=== PATIENT | male | born 1955 | race Caucasian/White ===

== ENCOUNTER 2017-01-10 13:07 | Emergency (ER) | payer MEDICARE, OTHER ==
[~2017-01-10] VITALS: Ht 162.6 cm; Wt 83.5 kg
[2017-01-10 13:28] VITALS: BP 127/76; PULSE 83; RESP 18; TEMP 98.8; O2SAT 93
--- NOTE | 2017-01-10 13:57 | PD ---
HPI Chief Complaint: Edema Time Seen by Provider: 13:36 Travel History International Travel<30 days: No Contact w/Intl Traveler<30days: No Traveled to known affect area: No History of Present Illness HPI This patient complains of right ankle pain. Duration is 2 days. Severity is moderate. He has no fever or injury. He has chronic bilateral leg edema for which she takes Lasix. He also is on Coumadin for artificial heart valve. His last INR was 3.3 1 week ago. This is in Goal range so no adjustment was made. Pain is worse with weightbearing or movement PFSH Past Medical History Anxiety: Yes Depression: Yes Heart Rhythm Problems: Yes High Cholesterol: Yes Congestive Heart Failure: Yes Coronary Artery Disease: Yes GERD: Yes Influenza Vaccination: Yes Past Surgical History Cardiac Surgery: Yes (DEFIBRILLATOR) Valve Replacement: Yes (AORTIC VALVE) Social History Alcohol Use: Yes (OCCAS) Tobacco Use: No Substance Use: No Allergies-Medications (Allergen,Severity, Reaction): Coded Allergies: No Known Allergies (Unverified , 01/10/17) Reported Meds & Prescriptions Reported Meds & Active Scripts Active Prednisone 20 Mg Tab 40 Mg PO DAILY Take 40 mg (2 tablets) daily for 5 days Percocet (Oxycodone-Acetaminophen) 5-325 mg Tab 1 Tab PO Q6H PRN Reported Atorvastatin (Atorvastatin Calcium) 40 Mg Tab 40 Mg PO HS Warfarin 2 Mg Tab 2 Mg PO DIRECTED Potassium (Potassium Gluconate) 600 Mg Tablet 40 Meq PO DAILY Diazepam 10 Mg Tab 10 Mg PO TID PRN Carvedilol 12.5 Mg Tab 12.5 Mg PO BID Quinapril (Quinapril HCl) 5 Mg Tab 20 Mg PO DAILY Omeprazole 40 Mg Cap 40 Mg PO DAILY Hydralazine HCl 25 Mg Tablet 25 Mg PO TID Ropinirole 0.5 Mg Tab 0.5 Mg PO TID Furosemide 40 Mg Tab 40 Mg PO BID Citalopram (Citalopram Hydrobromide) 40 Mg Tab 40 Mg PO DAILY Centrum (Multiple Vitamins W/ Minerals) 1 Chew 1 Tab CHEW DAILY Review of Systems General / Constitutional: No: Fever Eyes: No: Visual changes HENT: No: Headaches Cardiovascular: No: Chest Pain or Discomfort Respiratory: No: Shortness of Breath Gastrointestinal: No: Abdominal Pain Genitourinary: No: Dysuria Musculoskeletal: Positive: Arthralgias, Limited ROM, Pain Skin: No Rash Neurologic: No: Weakness Psychiatric: No: Depression Endocrine: No: Polydipsia Hematologic/Lymphatic: No: Easy Bruising Physical Exam Narrative GENERAL: Well-nourished, well-developed patient in no apparent distress. SKIN: Focused skin assessment reveals no rash and nodules. Skin is Warm and dry. HEAD: Atraumatic. Normocephalic. EYES: Pupils equal and round. No scleral icterus. No injection or drainage. ENT: No nasal bleeding or discharge. Mucous membranes pink and moist. NECK: Trachea midline. No JVD. CARDIOVASCULAR: Regular rate and rhythm. No murmur appreciated. RESPIRATORY: No accessory muscle use. Clear to auscultation. Breath sounds equal bilaterally. GASTROINTESTINAL: Abdomen soft, non-tender, nondistended. Hepatic and splenic margins not palpable. MUSCULOSKELETAL: No obvious deformities. No clubbing. No cyanosis. Symmetric edema of the lower extremities from the knee down. No ecchymosis or bruising or warmth or erythema. He has pain with movement of the right ankle. No calf tenderness NEUROLOGICAL: Awake and alert. No obvious cranial nerve deficits. Motor grossly within normal limits. Normal speech. PSYCHIATRIC: Appropriate mood and affect; insight and judgment normal. Data Data Last Documented VS Vital Signs Date Time Temp Pulse Resp B/P Pulse Ox O2 Delivery O2 Flow Rate FiO2 01/10/17 13:37 Room Air 01/10/17 13:28 98.8 83 18 127/76 93 Orders Ankle, Limited (Ap&Lat) (01/10/17 ) Crutches (01/10/17 13:45) Prothrombin Time / Inr (Pt) (01/10/17 13:45) Complete Blood Count With Diff (01/10/17 13:45) Labs Laboratory Tests Test 01/10/17 14:26 White Blood Count 11.6 TH/MM3 Red Blood Count 4.16 MIL/MM3 Hemoglobin 12.4 GM/DL Hematocrit 36.2 % Mean Corpuscular Volume 87.0 FL Mean Corpuscular Hemoglobin 29.9 PG Mean Corpuscular Hemoglobin 34.3 % Concent Red Cell Distribution Width 14.7 % Platelet Count 361 TH/MM3 Mean Platelet Volume 7.3 FL Neutrophils (%) (Auto) 74.9 % Lymphocytes (%) (Auto) 13.7 % Monocytes (%) (Auto) 8.7 % Eosinophils (%) (Auto) 0.1 % Basophils (%) (Auto) 2.6 % Neutrophils # (Auto) 8.8 TH/MM3 Lymphocytes # (Auto) 1.6 TH/MM3 Monocytes # (Auto) 1.0 TH/MM3 Eosinophils # (Auto) 0.0 TH/MM3 Basophils # (Auto) 0.3 TH/MM3 CBC Comment DIFF FINAL Differential Comment Prothrombin Time 55.7 SEC Prothromb Time International 4.7 RATIO Ratio MDM Medical Decision Making Medical Screen Exam Complete: Yes Emergency Medical Condition: Yes Medical Record Reviewed: Yes Differential Diagnosis Inflammatory arthritis, fracture, contusion, hemarthrosis Narrative Course I have reviewed the patient's electronic medical record. IV placed CBC is normal INR on Coumadin is 4.7, elevated Reviewed his right ankle x-rays show no fracture or dislocation. Soft tissue swelling is noted I gave him crutches. He should have nonweightbearing He should elevate and ice and compress. This would be good advice whether this is inflammatory arthritis or hemarthrosis I reviewed the up-to-date information regarding hemarthrosis diagnosis and treatment. Challenging to get accurate diagnosis without arthrocentesis. I don 't feel this is emergently indicated with an INR 4.7 as that may cause further complication or bleeding. No clinical suspicion of septic joint. I wrote her medication for pain Follow-up with his physician return if he worsens He will hold his Coumadin for the next 2 days He will need a repeat level and clinical follow-up from his physician Diagnosis Primary Impression: Acute right ankle pain Additional Impressions: Supratherapeutic INR Inflammatory arthritis Departure Forms: Tests/Procedures Additional Instructions: Ice and elevate and compress right ankle Use crutches and do not bear weight on right ankle The patient was warned about potential sedation for the medications they will receive on prescription. The patient was advised to follow up with their physician and return if they worsen. Hold Coumadin today and tomorrow Seek out a repeat INR level from your physician Med/Other Pt SpecificInfo: Prescription(s) given Scripts Prednisone 20 Mg Tab40 Mg PO DAILY #10 TAB Ref 0 Take 40 mg (2 tablets) daily for 5 days Prov:Nimesh Yee MD 01/10/17 Oxycodone-Acetaminophen (Percocet)5-325 mg Tab1 Tab PO Q6H PRN (PAIN) #20 TAB Ref 0 Prov:Nimesh Yee MD 01/10/17 Disposition: 01 DISCHARGE HOME Condition: Stable Nimesh Yee MD Jan 10, 2017 13:57
--- NOTE | 2017-01-10 14:33 | RADRPT ---
EXAM DATE/TIME: 01/10/2017 14:06 [facility] COMPARISON: No previous studies available for comparison. INDICATIONS : Right ankle pain with no known injury. MEDICAL HISTORY : Congestive heart failure. Hypercholesterolemia. Gastroesophageal reflux disease. CAD. Irregular h eart beat. Hypertension. SURGICAL HISTORY : Pacemaker. Aortic valve replacement. Bilateral shoulder surgery. ENCOUNTER: Initial ACUITY: 2 days PAIN SCORE: 10/10 LOCATION: Right ankle FINDINGS: AP and lateral views of the right ankle demonstrate no fracture or dislocation. Mineralization is wit hin normal limits. Ankle mortise is intact. There is a small enthesophyte at the plantar aspect of th e calcaneus. There is medial and lateral soft tissue swelling. Arterial vascular calcification is pre sent. CONCLUSION: 1. Soft tissue swelling around the ankle. No fracture is identified. 2. Arteriovascular calcification. Daryl Gottlieb MD on January 10, 2017 at 14:29 Board Certified Radiologist. This report was verified electronically.
[2017-01-10 14:35] LABS: AUTOMATED NEUTROPHIL # 8.8 TH/MM3 (1.8-7.7); BASOPHIL # 0.3 TH/MM3 (0-0.2); BASOPHIL % 2.6 % (0.0-2.0); EOSINOPHIL % 0.1 % (0.0-4.0); HEMATOCRIT 36.2 % (39.0-51.0); HEMO FLAGS DIFF FINAL; LYMPH % 13.7 % (9.0-44.0); LYMPHOCYTE # 1.6 TH/MM3 (1.0-4.8); MEAN CORPUSCULAR HEMOGLOBIN 29.9 PG (27.0-34.0); MEAN CORPUSCULAR HGB CONC 34.3 % (32.0-36.0); MONO % 8.7 % (0.0-8.0); NEUT % 74.9 % (16.0-70.0); PLATELET COUNT 361 TH/MM3 (150-450); RED BLOOD COUNT 4.16 MIL/MM3 (4.50-5.90); RED CELL DISTRIBUTION WIDTH 14.7 % (11.6-17.2); WHITE BLOOD COUNT 11.6 TH/MM3 (4.0-11.0)
[2017-01-10] MEDS ORDERED: ROPI0.5T PO (14:42)
[2017-01-10] MEDS ORDERED: CENTCHW4 CHEW (14:42)
[2017-01-10] MEDS ORDERED: CITA40TA4 PO (14:42)
[2017-01-10] MEDS ORDERED: FURO40TA PO (14:42)
[2017-01-10] MEDS ORDERED: ATOR40TA16 PO (14:43)
[2017-01-10] MEDS ORDERED: HYDR-3799 PO (14:43)
[2017-01-10] MEDS ORDERED: POTA-255 PO (14:43)
[2017-01-10] MEDS ORDERED: QUIN5TAB6 PO (14:43)
[2017-01-10] MEDS ORDERED: CARV12.52 PO (14:43)
[2017-01-10] MEDS ORDERED: WARF4TAB51 PO (14:43)
[2017-01-10] MEDS ORDERED: OMEP40CA2 PO (14:43)
[2017-01-10] MEDS ORDERED: DIAZ10TA PO (14:43)
[2017-01-10 14:51] LABS: INTERNATIONAL NORMALIZED RATIO 4.7 RATIO; PROTHROMBIN TIME - PATIENT 55.7 SEC (9.8-11.6)
[2017-01-10] MEDS ORDERED: PRED20 PO (15:41)
[2017-01-10] MEDS ORDERED: PERC5TAB12 PO (15:41)
[2017-01-10 15:54] VITALS: BP 130/78
== END 2017-01-10 15:55 | disposition home or self-care (01) ==
LOC: PHED 13:07
DX: M25.571 Pain in right ankle and joints of right foot (principal); R79.1 Abnormal coagulation profile; M06.4 Inflammatory polyarthropathy; Z79.01 Long term (current) use of anticoagulants; Z79.899 Other long term (current) drug therapy
CPT/HCPCS: 73600; 85025; 85610; 99284; E0113